=== PATIENT | female | born 1970 | race Caucasian/White ===

== ENCOUNTER → 2021-05-22 09:50 | Outpatient (BNVA) | payer OTHER, MEDICAID, SELFPAY | PROVIDERS: Family Provider Nurse Practitioner; PCP Nurse Practitioner; Visit Provider Nurse Practitioner Family | DX: Z13.6 Encounter for screening for cardiovascular disorders (principal) | CPT/HCPCS: 80053; 80061; 84443; 85025 ==

== ENCOUNTER 2021-08-28 08:30 | Outpatient (CLI) | payer MEDICAID, SELFPAY ==
--- NOTE | 2021-08-28 09:30 | MM_ITS ---
WS: [id number] SCREENING DIGITAL MAMMOGRAM WITH CAD HISTORY: Z12.39 - Encounter for other screening for malignant neoplasm... COMPARISON: None available. Bilateral CC and MLO views submitted. Computer aided detection analyzed. Breast composition: The breasts are heterogeneously dense, which may obscure small masses. Area of ar chitectural distortion in the anterior RIGHT breast seen best on the MLO projection. May be central o r just lateral to the nipple on the CC projection. There are several asymmetries in the LEFT breast w hich need further evaluation. MM/[id number] IMPRESSION: BI-RADS: 0-Incomplete: Need additional imaging evaluation FOLLOW UP: Need Additional Imaging RIGHT breast: Spot compression views (CC and MLO). True ML. Ultrasound to follo w if abnormality persists. LEFT breast: Spot compression views (CC and MLO). True ML. Ultrasound to follow if abnormality persists.
== END 2021-08-28 08:31 | disposition home or self-care (01) ==
PROVIDERS: Family Provider Nurse Practitioner; PCP Nurse Practitioner; Visit Provider Nurse Practitioner Family
DX: Z12.31 Encounter for screening mammogram for malignant neoplasm of breast (principal)
CPT/HCPCS: 77067

== ENCOUNTER 2021-09-25 08:02 | Outpatient (CLI) | payer MEDICAID, SELFPAY ==
--- NOTE | 2021-09-25 | US_ITS ---
ADDITIONAL VIEWS BILATERAL MAMMOGRAM AND BILATERAL BREAST ULTRASOUND, with CAD and 3-D tomosynthesis. ADDITIONAL VIEWS BILATERAL MAMMOGRAM HISTORY: RT BREAST DISTORTION;LT BREAST ASYMMETRY COMPARISON: 08/28/2021. Right breast: Architectural distortion in the anterior RIGHT breast completely resolves with additional imaging. Ultrasound will be performed to document no other abnormality. Left breast: Asymmetry is in the LEFT breast becomes much less apparent. There is dense fibroglandular tissue which does limit evaluation but no persistent abnormality is identified. BREAST ULTRASOUND RIGHT breast limited, ultrasound is directed to the anterior RIGHT breast. The area of distortion is not identified. No shadowing. There are a few benign- appearing low echogenicity nodules which are probably normal fibroglandular tissue. Recommend 6 month follow-up of the largest measuring 7 x 4 x 6 mm at 1:00. MM/[place] [id number] IMPRESSION: BI-RADS: 3-Probably Benign FOLLOW UP: 6 Month Follow-up Recommend RIGHT breast ultrasound, limited, of the 1:00 hypoechoic nodule. [facility]
--- NOTE | 2021-09-25 08:12 | MM_ITS ---
WS: [id number] ADDITIONAL VIEWS BILATERAL MAMMOGRAM AND BILATERAL BREAST ULTRASOUND, with CAD and 3-D tomosynthesis. ADDITIONAL VIEWS BILATERAL MAMMOGRAM HISTORY: RT BREAST DISTORTION;LT BREAST ASYMMETRY COMPARISON: 08/28/2021. Right breast: Architectural distortion in the anterior RIGHT breast completely resolves with addition al imaging. Ultrasound will be performed to document no other abnormality. Left breast: Asymmetry is in the LEFT breast becomes much less apparent. There is dense fibroglandula r tissue which does limit evaluation but no persistent abnormality is identified. BREAST ULTRASOUND RIGHT breast limited, ultrasound is directed to the anterior RIGHT breast. The area of distortion is not identified. No shadowing. There are a few benign-appearing low echogenicity nodules which are pro bably normal fibroglandular tissue. Recommend 6 month follow-up of the largest measuring 7 x 4 x 6 mm at 1:00. MM/[place] [id number] IMPRESSION: BI-RADS: 3-Probably Benign FOLLOW UP: 6 Month Follow-up Recommend RIGHT breast ultrasound, limited, of the 1:00 hypoechoic nodule.
== END 2021-09-25 08:03 | disposition home or self-care (01) ==
LOC: RADSHAW 08:04
PROVIDERS: PCP Nurse Practitioner; Visit Provider Nurse Practitioner Family
DX: N64.89 Other specified disorders of breast (principal); N63.12 Unspecified lump in the right breast, upper inner quadrant
CPT/HCPCS: 76642; 77062

== ENCOUNTER 2022-04-09 08:45 | Outpatient (CLI) | payer MEDICAID, SELFPAY ==
--- NOTE | 2022-04-09 08:52 | US_ITS ---
WS: [id number] ULTRASOUND RIGHT BREAST HISTORY: N63.0 - Unspecified lump in unspecified breast COMPARISON: 09/25/2021 TECHNIQUE: 2-D and Doppler. 6 month follow-up of the hypoechoic nodule in the RIGHT breast at 1:00 is unchanged. This hypoechoic nodules best the chest wall and measures 7 x 3.6 mm. May be normal fibroglandular tissue. US/US breast RT limited* [id number] IMPRESSION: BI-RADS: 3-Probably Benign FOLLOW-UP: 6 Month Follow-up Patient to return for diagnostic mammogram in September 2022. This area in the RIGH T breast will be reevaluated by ultrasound at that time.
== END 2022-04-09 08:46 | disposition home or self-care (01) ==
LOC: RAD 08:46
PROVIDERS: PCP Nurse Practitioner Family; Visit Provider Nurse Practitioner
DX: N63.12 Unspecified lump in the right breast, upper inner quadrant (principal)
CPT/HCPCS: 76642

== ENCOUNTER → 2022-07-30 08:59 | Outpatient (BNVA) | payer MEDICAID, SELFPAY | PROVIDERS: PCP Nurse Practitioner Family; Visit Provider Nurse Practitioner Family | DX: Z00.00 Encounter for general adult medical examination without abnormal findings (principal); Z12.11 Encounter for screening for malignant neoplasm of colon; Z13.6 Encounter for screening for cardiovascular disorders; Z12.39 Encounter for other screening for malignant neoplasm of breast; N92.0 Excessive and frequent menstruation with regular cycle; Z12.4 Encounter for screening for malignant neoplasm of cervix; R03.0 Elevated blood-pressure reading, without diagnosis of hypertension | CPT/HCPCS: 80053; 80061; 84443; 85025 ==

== ENCOUNTER → 2022-09-03 11:00 | Outpatient (BNVA) | payer MEDICAID, SELFPAY | PROVIDERS: PCP Nurse Practitioner Family; Referring Provider Nurse Practitioner Family; Visit Provider Nurse Practitioner Women's Health | DX: N92.0 Excessive and frequent menstruation with regular cycle (principal); Z12.4 Encounter for screening for malignant neoplasm of cervix | CPT/HCPCS: 87624 ==

== ENCOUNTER 2022-10-08 09:48 | Outpatient (CLI) | payer MEDICAID, SELFPAY ==
--- NOTE | 2022-10-08 10:10 | MM_ITS ---
WS: [id number] DIAGNOSTIC BILATERAL DIGITAL BREAST TOMOSYNTHESIS MAMMOGRAPHY WITH CAD RIGHT breast ultrasound, limited HISTORY: Follow-up asymmetries RIGHT breast. COMPARISON: 09/25/2021, 08/28/2021 and 04/09/2022 TECHNIQUE: Bilateral craniocaudad, mediolateral oblique, and mediolateral views are submitted with to mosynthesis and SM. Spot compression RIGHT CC and MLO. Computer aided detection utilized. Breast composition: The breasts are heterogeneously dense, which may obscure small masses. Dense asym metries within each breast. No obvious change. There are a few partially obscured nodules in the cent ral RIGHT breast which will be evaluated by ultrasound. RIGHT breast ultrasound, limited. Hypoechoic mass RIGHT breast near the areolar, 1:00. Hypoechoic mass measures 9 x 7 x 10 mm and has s lightly increased in size. No shadowing or increased vascularity. MM/[place] [id number] IMPRESSION: BI-RADS: 4-Suspicious Finding-Biopsy Should Be Considered FOLLOW UP: Biopsy Recommended Ultrasound-guided biopsy recommended hypoechoic mass 1:00 at the areolar. Notified SABRINA Ji at 10/08/2022 11:58 AM.
== END 2022-10-08 09:49 | disposition home or self-care (01) ==
LOC: RAD 09:53
PROVIDERS: PCP Nurse Practitioner Family; Visit Provider Nurse Practitioner Family
DX: R92.8 Other abnormal and inconclusive findings on diagnostic imaging of breast (principal)
CPT/HCPCS: 76642; 77062; G0279

== ENCOUNTER 2022-10-24 12:03 | Outpatient (CLI) | payer MEDICAID, SELFPAY ==
--- NOTE | 2022-10-24 12:44 | US_ITS ---
WS: [id number] ULTRASOUND-GUIDED RIGHT BREAST BIOPSY CLINICAL INFORMATION: MASS COMPARISON: October 08, 2022 FINDINGS: The procedure including risks, benefits, and complications were discussed with the patient who agreed to proceed. Using sterile technique patient was prepped and draped in the usual sterile fashion. Aft er 1% lidocaine utilizing real-time ultrasound guidance 5 14-gauge cores were obtained of the RIGHT b reast lesion at the areola 1:00 position. Subsequently a titanium clip was placed in the biopsy cavit y. No immediate complications. Pathology demonstrates A. Breast, right, 1 o'clock, areola, ultrasound-guided biopsy: - Benign breast tissue with apocrine metaplasia and stromal sclerosis. - No malignancy identified. US/[place] [id number] IMPRESSION: 1. Uncomplicated ultrasound-guided RIGHT breast biopsy. 2. The pathology demonstrates benign breast tissue with apocrine metaplasia an d stromal sclerosis BI-RADS: 2-Benign FOLLOW UP: 1 Year Follow-up
== END 2022-10-24 12:04 | disposition home or self-care (01) ==
LOC: RAD 12:08
PROVIDERS: PCP Nurse Practitioner Family; Visit Provider Nurse Practitioner Family
DX: R92.8 Other abnormal and inconclusive findings on diagnostic imaging of breast (principal)
CPT/HCPCS: 19083; 88305

== ENCOUNTER → 2023-03-04 14:41 | Outpatient (BNVA) | payer MEDICAID, SELFPAY | PROVIDERS: PCP Nurse Practitioner Family; Visit Provider Nurse Practitioner Family | DX: I10 Essential (primary) hypertension (principal) | CPT/HCPCS: 80053; 80061; 84443; 85025 ==

== ENCOUNTER → 2023-09-16 10:00 | Outpatient (BNVA) | payer MEDICAID, SELFPAY | PROVIDERS: PCP Nurse Practitioner Family; Visit Provider Nurse Practitioner Family | DX: I10 Essential (primary) hypertension | CPT/HCPCS: 80053; 80061; 84443; 85025 ==

== ENCOUNTER 2023-10-21 11:49 | Outpatient (CLI) | payer MEDICAID, SELFPAY ==
--- NOTE | 2023-10-21 12:00 | MM_ITS ---
WS: [id number] BILATERAL 3D TOMOSYNTHESIS DIGITAL SCREENING MAMMOGRAPHY WITH CAD CLINICAL INFORMATION: Z12.39 - Encounter for other screening for malignant neop... HISTORY: Screening mammogram. No current complaints. COMPARISON: 10/08/2022 TECHNIQUE: Bilateral CC and MLO views. FINDINGS: The breasts are composed of heterogeneous fibroglandular density tissue, which can limit the detectio n of small underlying mass lesions. No suspicious mass, asymmetry, calcifications, or architectural d istortion. No evidence of malignancy. Biopsy marker RIGHT breast with stable adjacent ovoid nodule. A few incidental punctate and lucent centered calcifications. IMPRESSION: MM/[place] [id number] BI-RADS: 2-Benign FOLLOW UP: 1 Year Follow-up Recommend return to annual screening mammography.
== END 2023-10-21 11:50 | disposition home or self-care (01) ==
PROVIDERS: PCP Nurse Practitioner Family; Visit Provider Nurse Practitioner Family
DX: Z12.31 Encounter for screening mammogram for malignant neoplasm of breast (principal)
CPT/HCPCS: 77063; 77067

== ENCOUNTER 2023-11-05 06:48 | Day surgery (SDC) | payer MEDICAID, SELFPAY ==
--- NOTE | 2023-11-05 06:01 | W.PM.OPSFHP ---
Same Day Surgery H&P Indication for Procedure/HPI DATE OF PROCEDURE: November 05, 2023 CHIEF COMPLAINT/INDICATIONFOR SURGICAL PROCEDURE: need for screening colonoscopy PREOP DIAGNOSIS: need for screening colonoscopy PLANNED PROCEDURE: Operation Date: 11/05/23 07:50 Proposed Procedures p Colonoscopy(Not Applicable) - Souleymane Matta MD Medications/Allergies* Home Medications Medication Instructions Recorded Confirmed Type aspirin 81 mg tablet,delayed 81 mg PO DAILY 07/30/22 10/31/23 History release Allergies/Adverse Reactions Allergy/AdvReac Type Severity Reaction Status Date / Time No Known Allergies Allergy Verified 10/31/23 12:36 Pertinent History/Comorbid Conditions* Medical History (Updated 09/16/23 @ 11:51 by SABRINA Ji) No significant past medical history Breast cancer screening Surgical History (Updated 09/16/23 @ 09:56 by SABRNIA Ji) No significant past surgical history Family History (Updated 05/22/21 @ 09:25 by Brianda May LPN) Stroke Mother Social History Smoking and tobacco/nicotine status: former use of tobacco/nicotine Second hand smoke exposure: No Alcohol intake: never Substance/Drug Use: never Adopted: No Caregiver/support person: No Lives independently: Yes Household members: family Housing: House Marital status: Number of children: 2 Highest education level completed: 11th Grade service: No Current occupational status: employed Pertinent Exam Findings alert, oriented x 3 and clear to auscultation bilaterally Recommendations Surgery/Procedure today Coding Level of Care Code Acute Code for Chg Fwd
[2023-11-05 07:00] VITALS: BMI 29.9
[2023-11-05 07:04] VITALS: BP 159/106; PULSE 88; RESP 18; TEMP 36.1; O2SAT 97
[2023-11-05] MEDS: sodium chloride 0.9% 1,000 ML 30 ML IV (07:07)
--- NOTE | 2023-11-05 07:12 | ANES.PREANE2 ---
Pre-Anesthetic Assessment Height/Weight: Height 1.57 m Weight 74.389 kg Temp Pulse Resp BP Pulse Ox O2 Del Method 97.0 F L 88 18 159/106 97 Room Air 11/05/23 07:04 11/05/23 07:04 11/05/23 07:04 11/05/23 07:04 11/05/23 07:04 11/05/23 07:04 Preop Diagnosis: need for screening colonoscopy Operation Date: 11/05/23 07:50 Proposed Procedures p Colonoscopy(Not Applicable) - Souleymane Matta MD Familial anesthetic complications: none Was Beta Ulises taken within 24 hours: N/A Was Clonidine taken within 24 hours: N/A Last intake: Intake Last Liquid Date 11/04/23 Last Liquid Time 21:00 Last Solid Date 11/03/23 Social Alcohol (daily) and No tobacco (history) Exam alert, oriented x 3, clear to auscultation bilaterally and regular rate & rhythm Airway Submandibular: within normal limits Cervical ROM: within normal limits Mallampati: Class I Dentition: full Pulmonary None reported CV/HEM Hypertension None reported Hepatic None reported GI None reported Metabolic Hyperlipidemia [facility] None reported Neuropsych None reported Anesthetic Plan ASA status: 2 Anesthesia: MAC Risk of > 500 ml blood loss (7ml/kg in children): No Medications/Allergies Home Medications Medication Instructions Recorded Confirmed Last Taken Type aspirin 81 mg tablet,delayed 81 mg PO DAILY 07/30/22 10/31/23 11/02/23 History release lisinopril 20 mg tablet 20 mg PO DAILY #30 tabs 09/16/23 10/31/23 11/03/23 Rx pravastatin 20 mg tablet 20 mg PO DAILY #30 tabs 09/16/23 10/31/23 11/03/23 Rx Allergies Allergy/AdvReac Type Severity Reaction Status Date / Time No Known Allergies Allergy Verified 11/05/23 07:02 Current Medications Generic Name Dose Route Start Last Admin Trade Name Freq PRN Reason Stop Dose Admin Sodium Chloride 1,000 mls @ 30 mls/hr 11/05/23 07:00 11/05/23 07:07 Sodium Chloride 0.9% IV 30 mls/hr .Q24H ALLI Administration PFSH Anesthesia Medical History No significant past medical history Breast cancer screening Surgical History No significant past surgical history Family History Mother Stroke Social History Smoking and tobacco/nicotine status: former use of tobacco/nicotine Second hand smoke exposure: No Alcohol intake: never Substance/Drug Use: never Adopted: No Caregiver/support person: No Lives independently: Yes Household members: family Housing: House Marital status: Number of children: 2 Highest education level completed: 11th Grade service: No Current occupational status: employed Data Anesthesia Cardiac Studies: No Data to Display
[2023-11-05 07:55] LABS: OR HCG Qualitative Urine Negative (Negative)
[2023-11-05 08:26] VITALS: BP 100/68; PULSE 80; RESP 16; TEMP 36.2; O2SAT 93
[2023-11-05 08:37] VITALS: BP 121/73; PULSE 78; RESP 16; O2SAT 95
--- NOTE | 2023-11-05 12:46 | ANE.PACU2 ---
Inpatient post-anesthesia follow up: Vital signs: Temperature 97.2 F Pulse Rate 78 Respiratory Rate 16 Blood Pressure 121/73 Pulse Oximetry 95 Oxygen Delivery Me thod Room Air Oxygen Flow Rate Fraction of Inspir ed Oxygen Hydration adequate: Yes Nausea and vomiting: No Pain level: 1 Mental status: Baseline
== END 2023-11-05 08:58 | disposition home or self-care (01) ==
PROVIDERS: Anesthesiology; PCP Nurse Practitioner Family; Visit Provider Surgery
PROC: 0DJD8ZZ Inspection of Lower Intestinal Tract, Via Natural or Artificial Opening Endoscopic (ICD-10-PCS; CPT 45378; principal; 2023-11-05 07:50)
DX: Z12.11 Encounter for screening for malignant neoplasm of colon (principal); Z79.82 Long term (current) use of aspirin; Z87.891 Personal history of nicotine dependence; K64.8 Other hemorrhoids; I10 Essential (primary) hypertension; E78.5 Hyperlipidemia, unspecified
CPT/HCPCS: 81025; G0121; J2704; J7030

== ENCOUNTER → 2024-03-16 09:13 | Outpatient (BNVA) | payer MEDICAID, SELFPAY | PROVIDERS: PCP Nurse Practitioner Family; Visit Provider Nurse Practitioner Family | DX: I10 Essential (primary) hypertension (principal); E78.2 Mixed hyperlipidemia | CPT/HCPCS: 80053; 80061; 83036; 84443; 85025 ==

== ENCOUNTER → 2024-09-21 09:19 | Outpatient (BNVA) | payer MEDICAID, SELFPAY | PROVIDERS: PCP Nurse Practitioner Family; Visit Provider Nurse Practitioner Family | DX: I10 Essential (primary) hypertension (principal); E78.2 Mixed hyperlipidemia | CPT/HCPCS: 80053; 80061; 84443; 85025 ==

== ENCOUNTER 2024-10-26 09:04 | Outpatient (CLI) | payer MEDICAID, SELFPAY ==
--- NOTE | 2024-10-26 09:20 | MM_ITS ---
WS: [id number] VIEWS: MLO and CC views both breasts. 3D digital tomosynthesis is also included in this exam. Comparison made with prior exam of 08/28/2021, 10/08/2022, 10/21/2023.. Findings: The breasts are extremely dense, which lowers the sensitivity of mammography. No sign of suspicious mass, tumor calcification or architectural distortion. A biopsy marker is seen in the anterior medial RIGHT breast. MM/MM scr BI tomosynthesis [id number] Impression: BI-RADS: 2 - Benign FOLLOW-UP: 1 Year Follow-up This mammogram was also analyzed by the Computer Aided Detection System [employer].
== END 2024-10-26 09:05 | disposition home or self-care (01) ==
LOC: RAD 09:05
PROVIDERS: PCP Nurse Practitioner Family; Visit Provider Nurse Practitioner Family
DX: Z12.31 Encounter for screening mammogram for malignant neoplasm of breast (principal); R92.343 Mammographic extreme density, bilateral breasts
CPT/HCPCS: 77063; 77067

== ENCOUNTER → 2025-03-22 11:58 | Outpatient (BNVA) | payer MEDICAID, SELFPAY | PROVIDERS: PCP Nurse Practitioner Family; Visit Provider Nurse Practitioner Family | DX: I10 Essential (primary) hypertension (principal) | CPT/HCPCS: 80053; 80061; 84443; 85025 ==

== ENCOUNTER → 2025-03-29 09:04 | Outpatient (BNVA) | payer MEDICAID, SELFPAY | PROVIDERS: PCP Nurse Practitioner Family; Visit Provider Nurse Practitioner Family | DX: E87.5 Hyperkalemia (principal) | CPT/HCPCS: 80053 ==